=== PATIENT | male | born 1985 | race Hispanic/Latino ===

== ENCOUNTER 2022-02-11 11:19 | Emergency (ER) | payer BC ==
[~2022-02-11] VITALS: Ht 180.3 cm; Wt 149.2 kg
[2022-02-11 11:56] LABS: BASOPHILS % (AUTO) 0.5 % (0.0-5.0); EOSINOPHILS % (AUTO) 0.7 % (0.0-8.0); HEMATOCRIT 46.2 % (42-54); LYMPHOCYTES % (AUTO) 20.1 % (21.0-51.0); MEAN CORPUSCULAR HGB CONC 33.1 g/dL (32.0-36.0); MEAN CORPUSCULAR VOLUME 87.7 fL (79-99); MONOCYTES % (AUTO) 7.8 % (3.0-13.0); NEUTROPHILS % (AUTO) 70.6 % (40.0-77.0); PLATELET COUNT (AUTO) 241 K/uL (130-400); RED BLOOD CELL COUNT(AUTO) 5.27 MIL/uL (4.50-6.20); RED CELL DISTRIBUTION WIDTH 13.5 % (11.0-15.5); WHITE BLOOD COUNT (AUTO) 12.9 K/uL (4.8-10.8)
[2022-02-11] MEDS ORDERED: KETOROLAC 30MG VIAL (30MG/ML) IVP ONE (12:00)
[2022-02-11] MEDS ORDERED: CYCLOBENZAPRINE HCL 10 MG TABLET PO ONE (12:00)
[2022-02-11 12:29] LABS: CREATININE 0.9 mg/dL (0.5-1.5); POTASSIUM 3.9 mmol/L (3.5-5.1)
[2022-02-11] MEDS ORDERED: CEFTRIAXONE 1G VIAL IVP ONE (12:30)
[2022-02-11] MEDS ORDERED: IPRATROPIUM/ALBUTEROL SULFATE 3 ML SOLUTION IH SCH (12:30)
[2022-02-11] MEDS ORDERED: ACETAMINOPHEN 500 MG TABLET PO ONE (12:30)
[2022-02-11] MEDS ORDERED: AZITHROMYCIN 250 MG TABLET PO ONE (12:30)
[2022-02-11 12:34] LABS: ALBUMIN 3.9 g/dL (3.5-5.0); TOTAL PROTEIN, SERUM 8.1 g/dL (6.0-8.3)
[2022-02-11 12:50] LABS: APPEARANCE,URINE CLEAR (CLEAR); BILIRUBIN,URINE NEGATIVE (NEGATIVE); COLOR,URINE YELLOW (YELLOW); GLUCOSE, URINE (UA) NEGATIVE (NEGATIVE); KETONES,URINE NEGATIVE (NEGATIVE); LEUKOCYTE ESTERASE ,URINE NEGATIVE (NEGATIVE); NITRATE,URINE NEGATIVE (NEGATIVE); OCCULT BLOOD,URINE NEGATIVE (NEGATIVE); PH,URINE 6.5 (5.0-8.0); PROTEIN,URINE NEGATIVE (NEGATIVE)
[2022-02-11 14:09] VITALS: BP 117/69
[2022-02-11] MEDS ORDERED: CYCL10TA16 PO (14:19)
[2022-02-11] MEDS ORDERED: DOXY100C5 PO (14:19)
[2022-02-11] MEDS ORDERED: NAPR-1180 PO (14:19)
[2022-02-11] MEDS ORDERED: ALBU8.5H8 IH (14:19)
[2022-02-11] MEDS ORDERED: D-ME1POW16 PO (14:19)
== END 2022-02-11 14:34 | disposition home or self-care (01) ==
LOC: EDH 11:19
DX: J18.9 Pneumonia, unspecified organism (principal); J98.11 Atelectasis; R05.9 Cough, unspecified; E66.01 Morbid (severe) obesity due to excess calories; Z68.42 Body mass index [BMI] 45.0-49.9, adult; Z20.822 Contact with and (suspected) exposure to COVID-19; Z88.1 Allergy status to other antibiotic agents; Z79.899 Other long term (current) drug therapy
CPT/HCPCS: 99284; 96374; 71045; 87635; 96375; 82550; 84484; 80053; 83690; 85025; 87804 ×2; 81003; 36415; 93005; 94640; C9803; J0696; J1885